=== PATIENT | female | born 1995 | race Two or more races ===

== ENCOUNTER 2025-02-13 20:54 | Emergency (ER) | payer MEDICAID, SELFPAY ==
--- NOTE | 2025-02-13 21:13 | XR_ITS ---
Examination: Humerus 2 views right Technique: Humerus, AP lateral 2 views Date and time of exam: February 13 25, 8 hours INDICATIONS: Dog bite to the arm today, pain FINDINGS: No acute fracture No shoulder dislocation No foreign body Soft tissue defect lower arm IMPRESSION: No acute fracture
[2025-02-13 21:14] VITALS: BP 123/84; PULSE 71; RESP 18; TEMP 36.9; O2SAT 95
[2025-02-13] MEDS: LIDOCAINE HCL 1% 20 ML VIAL IM (21:36)
--- NOTE | 2025-02-13 22:47 | PD.EDANIML ---
ED Animal Bite RME/HPI General Chief Complaint: Animal Bite Stated Complaint: DOG BITE TO RIGHT ARM Time Seen by Provider: 02/13/25 20:58 Arrival date/time: 02/13/25 20:54 This is a case of 29-year-old female with no medical history came in in the emergency room due to laceration on the right upper arm secondary to dog bite 2 hours prior to arrival in the emergency room patient was trying to break a dog fighting and accidentally bite the right upper arm sustaining a 6 cm laceration on the right upper arm patient rabies vaccine is unknown patient tetanus shot is not up-to-date no other injury noted Limitations: no limitations Related Data Previous Rx's ?Medication ?Instructions ?Recorded hydrocodone 5 mg-acetaminophen 325 1 tab PO TID #14 tabs 08/05/18 mg tablet ([place]) naproxen 500 mg tablet (Naprosyn) 500 mg PO BID PRN pain #60 tabs 08/05/18 amoxicillin 875 mg-potassium 1 tab PO BID #20 tabs 02/13/25 clavulanate 125 mg tablet ibuprofen 600 mg tablet 600 mg PO Q8H PRN pain #20 tabs 02/13/25 mupirocin 2 % topical ointment 1 applic topical BID #22 grams 02/13/25 (Centany) Allergies Allergy/AdvReac Type Severity Reaction Status Date / Time No Known Allergies Allergy Verified 02/13/25 20:55 Review of Systems Constitutional Constitutional: Reports system reviewed and no additional complaints, except as documented and Reports as per HPI Cardiovascular Cardiovascular: Reports system reviewed and no additional complaints, except as documented and Reports as per HPI Respiratory Respiratory: Reports system reviewed and no additional complaints, except as documented and Reports as per HPI Gastrointestinal Gastrointestinal: Reports system reviewed and no additional complaints, except as documented and Reports as per HPI Musculoskeletal Musculoskeletal: Reports system reviewed and no additional complaints, except as documented and Reports as per HPI Integumentary/Breasts Skin/Breast: Reports system reviewed and no additional complaints, except as documented and Reports as per HPI Neurologic Neurologic: Reports system reviewed and no additional complaints, except as documented and Reports as per HPI Past Medical History Past Medical History CARDIAC: Negative Cardiac Disorders or Congestive Heart Failure RESPIRATORY: Negative Chronic Obstructive Pulmonary Disease (COPD) or Asthma GENITOURINARY: Negative Renal Disease ENDOCRINE: Negative Diabetes Mellitus Type 1 or Diabetes Mellitus Type 2 HEMATOLOGIC: Negative Sickle Cell Disease Social History SMOKING STATUS: Never smoker ED Exam General Limitations: Present no limitations General appearance: Present alert, in no apparent distress and other (Patient is awake alert oriented not in distress nontoxic looking well-hydrated well noURISHED) Head Head exam: Present atraumatic, normocephalic and normal inspection Eye Eye exam: Present normal appearance, PERRL and EOMI ENT ENT exam: Present normal exam, normal oropharynx and mucous membranes moist Neck Neck exam: Present normal inspection, full ROM and trachea midline; Absent tenderness, meningismus, lymphadenopathy or thyromegaly Chest Chest inspection: Present normal inspection and symmetric chest wall rise; Absent tenderness, rash or abscess Respiratory Respiratory exam: Present normal lung sounds bilaterally; Absent respiratory distress, wheezes, stridor, accessory muscle use or prolonged expiratory phase Cardiovascular Cardiovascular exam: Present regular rate, normal rhythm and normal heart sounds; Absent bradycardia, tachycardia, irregular rhythm, systolic murmur or diastolic murmur Abdominal Exam Abdominal exam: Present soft and normal bowel sounds; Absent distention, tenderness, guarding, rebound, rigidity, diminished bowel sounds, hyperactive bowel sounds, hypoactive bowel sounds or organomegaly Extremities Exam Extremities exam: Present normal inspection and full ROM Expanded Upper Extremity Exam Arm exam: Present laceration (Noted 6 cm laceration on the right upper arm with mild ecchymosis involving subcutaneous no muscle or bone involvement minimal bleeding no foreign body no abscess no cellulitis ROM intact pulses were full and equal capillary refill less than 2 seconds sensory intact) and ecchymosis; Absent tenderness, swelling, abrasion, deformity, crepitus or erythema Back Exam Back exam: Present normal inspection and full ROM Neurological Exam Neurological exam: Present alert, oriented X3, CN II-XII intact, normal gait and reflexes normal; Absent motor sensory deficit Psychiatric Psychiatric exam: Present normal affect and normal mood Skin Skin exam: Present warm, dry, intact, normal color and other (Arm laceration right) Course Quality Measures none Orders Category Date Time Status XR humerus RT min 2V Stat Exams 02/13/25 21:13 Completed HCG,Qualitative Serum Stat Lab 02/13/25 23:01 Ordered Ampicillin/Sulbac Inj [Unasyn Inj] Med 02/13/25 22:34 Discontinued 1.5 gm IM X1 ONE HYDROcodone*/APAP 5/325 [[place] 5/325] Med 02/13/25 22:38 Discontinued 1 tab PO X1 ONE Lidocaine 1% Vial 20 ml [Xylocaine 1% 20 ML] Med 02/13/25 21:13 Discontinued 20 ml IM X1 ONE TET,DIP/PERT AC (Adult)-Tdap [Boostrix Adult (Tdap) Med 02/13/25 22:38 Pending Vacc] 0.5 ml IMI .ONCE ONE Vital Signs Vital signs: Vital Signs Temperature 98.4 F 02/13/25 21:14 Pulse Rate 71 02/13/25 21:14 Respiratory Rate 18 02/13/25 21:14 Blood Pressure 123/84 02/13/25 21:14 Pulse Oximetry (%) 95 02/13/25 21:14 Oxygen Delivery Method Room Air 02/13/25 21:14 Oxygen saturation is 95% in room air PROCEDURES: Laceration Laceration 1: Site: other (Right upper arm) Side (If applicable): right Size (cm): 6 Description: irregular Depth: simple, single layer Local Anesthetic: lidocaine 1% Amount of anesthesia used (mL): 20 Pre-repair: wound explored, irrigated extensively and deep structures intact Skin layer closed with: nylon Suture size (cm): 4-0 Number of sutures: 14 Technique: horizontal mattress Animal Bite MDM Narrative MDM Narrative:: This is a case of 29-year-old female with no medical history came in in the emergency room due to laceration on the right upper arm secondary to dog bite 2 hours prior to arrival in the emergency room patient was trying to break a dog fighting and accidentally bite the right upper arm sustaining a 6 cm laceration on the right upper arm patient rabies vaccine is unknown patient tetanus shot is not up-to-date no other injury noted patient is awake alert oriented not in distress nontoxic looking well-hydrated well-nourished patient sustained a 6 cm laceration on the right upper ARM involving the skin and subcutaneous area minimal bleeding no foreign body no muscle or bone injury noted no abscess no cellulitis no redness x-ray showed no fracture no dislocation laceration repair was performed patient tolerated well the procedure procedure done via universal protocol and via sterile technique due to the large laceration I decided to give the patient Unasyn IM here in the emergency room to prevent infection and patient will be discharged with Augmentin to be taken for 10 days she was also given Tdap here to up-to-date the tetanus vaccine and was given [place] for pain the laceration was covered with Cristi bandage patient tolerated well the procedure patient will follow-up with PCP in 2 days for reevaluation and wound check and for removal of suture in 10 days for any signs and symptoms of infection worsening symptoms or any emergent concern return precaution in the ER is advised Patient was discharged with comfortable condition walking with stable gait. Patient verbalized no further complains explained diagnosis and answered patient question. Patient is comfortable with the proposed management plan including the need to follow up with his/her primary care physician and any specialist if applicable Discussed patient for any urgent condition or worsening sx, He/She needed to go to emergency room immediately or call 911. Patient acknowledge the responsibility to follow up as instructed and to monitor her/his symptoms. For any persistence of the symptoms for more than 3-5 days return precaution advised. Discussed the result of the test and was given printed discharge instruction Patient data External records reviewed:: [facility] previous records Clinical information provided by:: patient Social determinants that could affect healthcare access:: none Patient has the following chronic illnesses:: None How is presenting disease/condition affected by chronic disease/condition?: no chronic disease Evaluation data The following diagnostics were reviewed and interpreted by me:: radiology exam(s) Lab and/or radiology exams considered but not ordered:: Reviewed Interpretation Summary: Reviewed Medications / Prescriptions Medications or Prescriptions considered but not ordered:: Given Medication administrations:: Medication Administration History Diphtheria/Tetanus/Acell Pertussis (Diphth,Pertuss(Acell),Tet Vac 0.5 Ml Syr- Adult) 0.5 ml IMi .ONCE ONE Stop: 02/13/25 22:39 Discontinued Medications Hydrocodone Bitart/Acetaminophen (Hydrocodone/Apap 5/325 Tablet) 1 tab PO X1 ONE Stop: 02/13/25 22:39 Ampicillin Sodium/Sulbactam Sodium (Ampicillin/Sulbac Inj 1.5 Gm Vial) 1.5 gm IM X1 ONE Stop: 02/13/25 22:35 Lidocaine HCl (Lidocaine Hcl 1% 20 Ml Vial) 20 ml IM X1 ONE Stop: 02/13/25 21:14 Last Admin: 02/13/25 21:36 Dose: 20 ml Documented By: BD Comments: GIVEN TO PROVIDER Given Consultations Consultation(s) initiated? (list below): No Diagnosis Differential diagnosis animal bite: bite by animal and dog bite Most likely diagnosis given after review of the tests above:: Arm laceration secondary to dog bite Admission Indicated Admission indicated?: not indicated Explain why admission is indicated or not indicated:: Not indicated Admission Request Was there a request for admission?: No Admission Attestation Admission request attestation: Not indicated Disposition Plan Disposition Plan: Discharge Discharge Attestation Discharge Attestation: The patient and all family members were given an opportunity to ask questions and understood the discharge instructions. Discharge instructions specifically effects, indications for sooner follow up or return to the emergency department, and the expected course of current diagnosis. Patient condition: Stable Discharge Plan Plan Patient Disposition: HOME (Self Care) Patient condition on transfer: Stable Prescriptions/Referrals Prescriptions/Med Rec: New amoxicillin-pot clavulanate 875-125 mg tablet 1 tab PO BID Qty: 20 0RF mupirocin [Centany] 2 % ointment 1 applic topical BID Qty: 22 0RF ibuprofen 600 mg tablet 600 mg PO Q8H PRN (Reason: pain) Qty: 20 0RF No Action hydrocodone-acetaminophen [[place]] 5-325 mg tablet 1 tab PO TID MDD 3 Qty: 14 0RF naproxen [Naprosyn] 500 mg tablet 500 mg PO BID PRN (Reason: pain) Qty: 60 0RF Referrals: Gloria Chacon PA-C [Primary Care Provider, Family Practice] - In 1 week Problem List Clinical Impression: Dog bite, Arm laceration Patient/Caregiver Discharge Instructions Education Materials: Suture Care, ED Dog Bite, ED Laceration: All Closures Additional Instructions: Follow-up with your primary care physician in 2 days for reevaluation and wound and removal of suture in 10 days worsening symptoms or any emergent concern such as redness swelling discharge from the wound pain fever chills return to the emergency room immediately or call 911 it is also very important to follow-up with your primary care physician or [facility] for your possible rabies vaccine take your medication as directed finish the course of antibiotic keep the wound clean and dry Print Language: Citizen Of [place] Stand Alone Forms: Bernarda Award Info., Patient Portal Info Letter PA/EMMANUEL Supervising Physician PA/EMMANUEL Supervising Physician: Dr. Boone
--- NOTE | 2025-02-13 23:04 | PC.NURSE ---
PT REFUSED TETANUS WILL GET FROM PRIMARY
[2025-02-13] MEDS: HYDROcodone/APAP 5/325 TABLET 1 TAB PO (23:05)
[2025-02-13] MEDS: AMPICILLIN IM (23:06)
[2025-02-13] MEDS: SULBAC IM (23:06)
[2025-02-13 23:22] VITALS: BP 120/82; PULSE 71; RESP 18; TEMP 36.9; O2SAT 95
== END 2025-02-13 23:25 | disposition home or self-care (01) ==
PROVIDERS: Emergency Provider Emergency Medicine; PCP Physician Assistant
DX: S41.111A Laceration without foreign body of right upper arm, initial encounter (principal); W54.0XXA Bitten by dog, initial encounter
CPT/HCPCS: 12002; 73060; 84703; 96372; 99283; J0295; J3490; A9270

== ENCOUNTER 2025-02-23 09:35 | Emergency (ER) | payer MEDICAID, SELFPAY ==
[2025-02-23 09:55] VITALS: BP 115/78; PULSE 74; RESP 16; TEMP 36.7; O2SAT 97; BMI 29.7
--- NOTE | 2025-02-23 10:31 | PD.EDWOUND ---
ED Wound/Laceration-RME/HPI General Chief Complaint: Wound Recheck / Suture Removal Stated Complaint: SUTURE REMOVAL TO R ARM Time Seen by Provider: 02/23/25 09:42 Arrival date/time: 02/23/25 09:35 29-year-old female presents to the emergency department requesting suture removal from right upper arm Limitations: no limitations Related Data Previous Rx's ?Medication ?Instructions ?Recorded hydrocodone 5 mg-acetaminophen 325 1 tab PO TID #14 tabs 08/05/18 mg tablet ([place]) naproxen 500 mg tablet (Naprosyn) 500 mg PO BID PRN pain #60 tabs 08/05/18 amoxicillin 875 mg-potassium 1 tab PO BID #20 tabs 02/13/25 clavulanate 125 mg tablet ibuprofen 600 mg tablet 600 mg PO Q8H PRN pain #20 tabs 02/13/25 mupirocin 2 % topical ointment 1 applic topical BID #22 grams 02/13/25 (Centany) Allergies Allergy/AdvReac Type Severity Reaction Status Date / Time No Known Allergies Allergy Verified 02/23/25 09:36 Review of Systems Review of Systems Systems Reviewed: All systems reviewed, normal except as documented Constitutional Constitutional: Reports system reviewed and no additional complaints, except as documented, Denies fever(s) and Denies headache(s) Eyes Eyes: Reports system reviewed and no additional complaints, except as documented and Denies blurry vision ENT Ears, Nose, Mouth, and Throat: Reports system reviewed and no additional complaints, except as documented, Denies headache(s), Denies nasal congestion and Denies nasal discharge Cardiovascular Cardiovascular: Reports system reviewed and no additional complaints, except as documented, Denies chest pain and Denies dyspnea Respiratory Respiratory: Reports system reviewed and no additional complaints, except as documented, Denies chest congestion, Denies cough and Denies dyspnea Gastrointestinal Gastrointestinal: Reports system reviewed and no additional complaints, except as documented and Denies abdominal pain Integumentary/Breasts Skin/Breast: Reports system reviewed and no additional complaints, except as documented, Denies rash and Reports wounds (Sutures right upper arm) Neurologic Neurologic: Reports system reviewed and no additional complaints, except as documented, Reports as per HPI and Denies headache(s) Past Medical History Past Medical History CARDIAC: Negative Cardiac Disorders or Congestive Heart Failure RESPIRATORY: Negative Chronic Obstructive Pulmonary Disease (COPD) or Asthma GENITOURINARY: Negative Renal Disease ENDOCRINE: Negative Diabetes Mellitus Type 1 or Diabetes Mellitus Type 2 HEMATOLOGIC: Negative Sickle Cell Disease Social History SMOKING STATUS: Current every day smoker ED Exam General Limitations: Present no limitations General appearance: Present alert and in no apparent distress Head Head exam: Present atraumatic Eye Eye exam: Present normal appearance, PERRL and EOMI ENT ENT exam: Present normal exam, normal oropharynx and mucous membranes moist Neck Neck exam: Present normal inspection, full ROM and trachea midline Chest Chest inspection: Present normal inspection and symmetric chest wall rise Respiratory Respiratory exam: Present normal lung sounds bilaterally Cardiovascular Cardiovascular exam: Present regular rate, normal rhythm and normal heart sounds Abdominal Exam Abdominal exam: Present soft and normal bowel sounds Extremities Exam Extremities exam: Present normal inspection and full ROM Back Exam Back exam: Present normal inspection and full ROM Neurological Exam Neurological exam: Present alert, oriented X3 and CN II-XII intact Psychiatric Psychiatric exam: Present normal affect and normal mood Skin Skin exam: Present warm, dry and other (Sutures in place right upper arm) Course Quality Measures none Vital Signs Vital signs: Vital Signs Temperature 98.1 F 02/23/25 09:55 Pulse Rate 74 02/23/25 09:55 Respiratory Rate 16 02/23/25 09:55 Blood Pressure 115/78 02/23/25 09:55 Pulse Oximetry (%) 97 02/23/25 09:55 Oxygen Delivery Method Room Air 02/23/25 09:55 O2 saturation 97% room air within the limits Wound / Laceration MDM Narrative MDM Narrative:: 29-year-old female presents to the emergency department requesting suture removal from right upper arm On exam patient well-appearing does not appear toxic no acute distress On exam patient does have sutures in place right upper arm All sutures removed in their entirety Patient discharged home in no distress to follow-up with primary care doctor in the next 24 to 48 hours and for any worsening symptoms to return to the ER immediately Patient data External records reviewed:: [facility] previous records Clinical information provided by:: patient Social determinants that could affect healthcare access:: none Patient has the following chronic illnesses:: None How is presenting disease/condition affected by chronic disease/condition?: no chronic disease Evaluation data The following diagnostics were reviewed and interpreted by me:: other (specify) Lab and/or radiology exams considered but not ordered:: Considered not ordered Interpretation Summary: N/A Medications / Prescriptions Medications or Prescriptions considered but not ordered:: Given no meds Medication administrations:: No meds given Consultations Consultation(s) initiated? (list below): No Diagnosis Wound Differential Diagnosis: laceration, abrasion and avulsion of skin Most likely diagnosis given after review of the tests above:: Laceration Admission Indicated Admission indicated?: not indicated Admission Request Was there a request for admission?: No Disposition Plan Disposition Plan: Discharge Discharge Attestation Discharge Attestation: The patient and all family members were given an opportunity to ask questions and understood the discharge instructions. Discharge instructions specifically effects, indications for sooner follow up or return to the emergency department, and the expected course of current diagnosis. Patient condition: Stable Discharge Plan Plan Patient Disposition: HOME (Self Care) Discharge Disposition comment: Stable Prescriptions/Referrals Prescriptions/Med Rec: No Action hydrocodone-acetaminophen [[place]] 5-325 mg tablet 1 tab PO TID MDD 3 Qty: 14 0RF naproxen [Naprosyn] 500 mg tablet 500 mg PO BID PRN (Reason: pain) Qty: 60 0RF amoxicillin-pot clavulanate 875-125 mg tablet 1 tab PO BID Qty: 20 0RF mupirocin [[place]] 2 % ointment 1 applic topical BID Qty: 22 0RF ibuprofen 600 mg tablet 600 mg PO Q8H PRN (Reason: pain) Qty: 20 0RF Problem List Clinical Impression: Visit for suture removal Patient/Caregiver Discharge Instructions Education Materials: ED Stitches/Staple Removal No ... Additional Instructions: Please follow up with your primary care doctor in the next 24-48hrs for any worsening symptoms return here immediately Print Language: [place] Stand Alone Forms: Bernarda Award Info., Patient Portal Info Letter PA/AUTO BUMPER STRAIGHTENER Supervising Physician PA/AUTO BUMPER STRAIGHTENER Supervising Physician: Dr friedman
== END 2025-02-23 11:41 | disposition home or self-care (01) ==
LOC: SERX 10:43
PROVIDERS: Emergency Provider Nurse Practitioner Primary Care
DX: S41.111D Laceration without foreign body of right upper arm, subsequent encounter (principal); X58.XXXD Exposure to other specified factors, subsequent encounter
CPT/HCPCS: 99281